=== PATIENT | male | born 2000 | race Caucasian/White ===

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

== ENCOUNTER 2019-08-30 16:59 | Emergency (ER) | payer BC, OTHER | END 2019-08-30 17:30 | disposition short-term general hospital (02) | LOC: BURERS 16:59 | DX: T18.128A Food in esophagus causing other injury, initial encounter (principal) | CPT/HCPCS: 99284 ==

== ENCOUNTER 2022-10-26 21:39 | Emergency (ER) | payer OTHER, SELFPAY ==
[~2022-10-26 21:39] MED LIST: Morphine 2 MG/ML VIAL ONE; Morphine 4 MG/ML VIAL ONE; Ondansetron PF 4 MG/2 ML Vial ONE
== END 2022-10-26 22:55 | disposition home or self-care (01) ==
LOC: BURERS 21:39
DX: R11.2 Nausea with vomiting, unspecified (principal); R10.9 Unspecified abdominal pain; R10.817 Generalized abdominal tenderness; F17.210 Nicotine dependence, cigarettes, uncomplicated
CPT/HCPCS: 96361; 96374; 96375; J2270; J2272; J2405

== ENCOUNTER 2025-07-04 14:24 | Emergency (ER) | payer OTHER | END 2025-07-04 15:21 | disposition home or self-care (01) | LOC: BURERS 14:24 | DX: S61.217A Laceration without foreign body of left little finger without damage to nail, initial encounter (principal); F17.290 Nicotine dependence, other tobacco product, uncomplicated; W26.0XXA Contact with knife, initial encounter; Z23 Encounter for immunization | CPT/HCPCS: 12001; 90471; 90715 ==